=== PATIENT | female | born 1960 | race Caucasian/White ===

== ENCOUNTER → 2018-01-15 | Outpatient (CLI) | payer BC ==
--- NOTE | 2018-01-15 14:24 | MAMMOGRAPHY REPORT ---
BILATERAL DIGITAL DIAGNOSTIC MAMMOGRAM TOMOSYNTHESIS WITH CAD AND TARGETED RIGHT ULTRASOUND: 8 CLINICAL HISTORY: 57-year-old woman presents with a palpable lump in the 12:00 right breast that she has noticed for approximately 1 month. No skin erythema, thickening or nipple discharge. Family his tory of breast cancer = mother, postmenopausal. TECHNIQUE: Bilateral breast tomosynthesis in addition to standard 2D mammography was performed. Curre nt study was also evaluated with a Computer Aided Detection (CAD) system. COMPARISON: No prior exams were available for comparison; this is the patient's baseline mammogram. BREAST COMPOSITION: The tissue of both breasts is heterogeneously dense, which may obscure small mas ses. FINDINGS: A triangular skin palpable marker overlies the 12:00 middle one third of the right breast, denoting the palpable lump pointed out by the patient. In the area of palpable concern, there is a s piculated mass measuring 14 x 12 x 13 mm, with the spicules extending over a larger area measuring ap proximately 3 cm in diameter. This is suspicious and further evaluation with ultrasound was performe d. No other suspicious masses, asymmetries or areas of architectural distortion are identified bilateral ly. There are diffusely scattered punctate microcalcifications in each breast that have a benign akira mographic appearance. Targeted ultrasound was performed in the area of palpable lump in the 12:00 ri ght breast and also in the right axilla. In the area of palpable concern in the 12:00 axis, 2 cm from the nipple, there is a solid vascular ma ss with indistinct margins measuring 10.3 x 8.1 x 11.2 mm. This is suspicious for malignancy and def initive characterization with an ultrasound-guided core biopsy is recommended. Additional scanning p erformed in the right axilla demonstrates several lymph nodes, with cortical thickness within the ran ge of normal, measuring approximately 2 mm. No definite sonographic evidence of suspicious right axi llary lymphadenopathy. IMPRESSION: ACR BI-RADS CATEGORY 5: HIGHLY SUGGESTIVE OF MALIGNANCY, TARGETED ULTRASOUND ACR BI-RADS CATEGORY 5: HIGHLY SUGGESTIVE OF MALIGNANCY 1. Ultrasound-guided core biopsy is recommended for a suspicious spiculated 12 mm mass in the 12:00 right breast, which is also palpable by the patient. 2. No definite suspicious right axillary lymphadenopathy identified on targeted right axillary ultra sound. 3. No mammographic evidence of malignancy in the left breast. These results and recommendations were discussed with the patient at the time of the exam. She tenta tively scheduled the right breast biopsy prior to leaving our department. Approximately 10% of breast cancers are not detected with mammography. A negative mammographic report should not delay biopsy if a clinically suggestive mass is present. Tish Eugene M.D. ay/:01/15/2018 11:04:31 Rn Lactation Consultant: Dhara TEJEDA(Latasha)(Jemal), [facility] letter sent: Abnormal 4/5 BI-RADS Code: ACR BI-RADS Category 5: Highly Suggestive Of Malignancy Ultrasound BI-RADS: ACR BI-RAD S Category 5: Highly Suggestive Of Malignancy
== END | disposition home or self-care (01) ==
LOC: C.MAMM 08:57
PROVIDERS: ATTEND Obstetrics & Gynecology
DX: N63.10 Unspecified lump in the right breast, unspecified quadrant (principal); Z80.3 Family history of malignant neoplasm of breast

== ENCOUNTER → 2018-01-18 | Outpatient (CLI) | payer BC ==
--- NOTE | 2018-01-18 13:09 | Discharge Instructions ---
Discharge Instructions Procedure Procedure Date: Jan 18, 2018. Reason for visit: Right Mass. Discharge Discharge Date: Jan 18, 2018. Discharge Diagnosis: status post breast biopsy Instructions Activity Recommendations: Additional Limitations (see below) Return to School/Work: no limitations Recommended Home Diet: No Limitations Provider Instructions: ACTIVITY RECOMMENDATIONS: * No lifting, pushing, pulling or exercising the affected side for three days. RETURN TO SCHOOL/WORK: * You may return to work/school after the procedure, but do not perform any strenuous activities for 24 to 48 hours. MEDICATIONS: * Tylenol (two 325 mg) every four to six hours if needed for mild pain (if not allergic to Tylenol). DIET: * Resume previous diet. SPECIAL CARE INSTRUCTIONS: * Keep biopsy site dry for 24 hours. May shower after 24 hours, but do not soak (bathe) incision. * May remove Tegaderm (plastic patch) tomorrow AFTER showering. * Leave the steri-strips on for one week. Allow the steri-strips to fall off by themselves. If not off after one week, you may remove them. You may place a Bandaid crosswise over the strips, if desired. * Apply ice 10 minutes on and 10 minutes off as needed. * Wear a bra at bedtime to sleep more comfortably for 2-3 days. * Your referring physician should have the results after approximately 5 to 7 business days. * Call for unusual bleeding, fever, drainage, etc or if you have any questions call during normal business hours or after hours call Dr Lancaster, [phone]. FOLLOW UP VISIT: Follow-up with Referring Physician as scheduled. Allergies Coded Allergies: No Known Allergies (Unverified , 09/21/11) Delon Esp[place] Recommendations: Call your doctor if: * Temperature above 101 degrees * Pain not relieved by pain medicine ordered * There is increased drainage or redness from any incision * You have any unanswered questions or concerns. Your Doctors Instructions noted above were prepared by provider Kely Lancaster. Patient Signature Section: Patient Instructions Signature Page Lissa Boyer Patient (or Guardian) Signature/Date: I have read and understand the instructions given to me by my caregivers. Caregiver/RN/Doctor Signature/Date: The above-named patient and/or guardian has received patient instructions on this date. + Original Patient Signature Page (only) stays with chart. Please make copy for patient.
--- NOTE | 2018-01-21 07:50 | MAMMOGRAPHY REPORT ---
ULTRASOUND GUIDED BIOPSY RIGHT BREAST: 01/18/2018 CLINICAL HISTORY: Suspicious right 12:00 breast mass. PATIENT CONSENT: The procedure, risks and benefits were discussed with the patient and informed writt en consent was obtained. A timeout was performed immediately prior to the procedure. PROCEDURE DESCRIPTION: With ultrasound guidance, aseptic technique, and lidocaine as the local anesth etic (1% lidocaine to anesthetize the skin and 1% lidocaine with epinephrine to anesthetize the deepe r tissues), the mass of concern in the right 12:00 breast was sampled 4 times with a 14-gauge Achieve biopsy needle. Immediately thereafter, with ultrasound guidance, aseptic technique, and lidocaine a s the local anesthetic, a metallic localizer clip was placed centrally in the mass. Direct pressure was applied to the site immediately post procedure and hemostasis was achieved. Postprocedure unilat eral mammograms were performed to confirm placement of the clip in the expected location of the breas t mass. The patient tolerated the procedure without complication. She was given wound care instruc tions. The specimens were sent to pathology for analysis. COMPARISON: Comparison is made to exams dated: 01/15/2018 ultrasound and 01/15/2018 mammogram - [facility]. IMPRESSION: ULTRASOUND GUIDED BIOPSY Ultrasound-guided core needle biopsy of the suspicious right 12:00 breast mass, with clip placement. The patient will receive pathology results from her referring provider. Kely Lancaster M.D. /:01/18/2018 13:10:11 Configuration Management Advisor: Dhara DOWNS)(Jemal), [facility]
--- NOTE | 2018-01-21 07:50 | MAMMOGRAPHY REPORT ---
UNILATERAL RIGHT DIGITAL DIAGNOSTIC MAMMOGRAM TOMOSYNTHESIS: 01/18/2018 CLINICAL HISTORY: Status post right breast biopsy. TECHNIQUE: Breast tomosynthesis in addition to standard 2D mammography was performed. Postprocedura l right CC and ML tomosynthesis images were obtained. COMPARISON: Comparison is made to exams dated: 01/15/2018 ultrasound and 01/15/2018 mammogram - [facility]. BREAST COMPOSITION: The tissue of the right breast is heterogeneously dense, which may obscure small masses. FINDINGS: A new biopsy marker clip is seen at the site of the biopsied mass in the right 12:00 breast . No significant postbiopsy hematoma is seen. IMPRESSION: POST PROCEDURE IMAGING FOR MARKER PLACEMENT New biopsy marker clip status post right breast biopsy. Pathology results are pending. Approximately 10% of breast cancers are not detected with mammography. A negative mammographic report should not delay biopsy if a clinically suggestive mass is present. Kely Lancaster M.D. ah/:01/18/2018 13:27:14 Friction Saw Operator: Kely Lancaster MD, [facility] BI-RADS Code: Post Procedure Imaging For Marker Placement
== END | disposition home or self-care (01) ==
LOC: C.MAMM 12:35
PROVIDERS: ATTEND Obstetrics & Gynecology
DX: C50.911 Malignant neoplasm of unspecified site of right female breast (principal)

== ENCOUNTER 2018-02-07 07:46 | Day surgery (SDC) | payer BC ==
[2018-01-28 12:12] LABS: BASO % 0.7 %; BASO ABS # 0.05 K/uL (0-0.2); EOS % 0.7 %; EOS ABS # 0.05 K/uL (0-0.5); HEMATOCRIT 39.6 % (37-47); HEMOGLOBIN 13.9 g/dL (12.0-16.0); IG# 0.02 K/uL (0.00-0.02); LYMPH % 23.8 %; LYMPH ABS # 1.78 K/uL (1.2-3.4); MEAN CELL VOLUME 97.3 fL (80-100); MEAN CORPUSCULAR HEMOGLOBIN 34.2 pg (25-34); MEAN CORPUSCULAR HGB CONC 35.1 g/dl (32-36); MEAN PLATELET VOLUME 9.7 fL (7.4-10.4); MONO % 8.8 %; MONO ABS # 0.66 K/uL (0.11-0.59); NEUT % 65.7 %; NEUT ABS # 4.93 K/uL (1.4-6.5); PLATELET COUNT 337 K/uL (130-400); RED CELL DISTRIBUTION WIDTH CV 11.9 % (11.5-14.5); RED CELL DISTRIBUTION WIDTH SD 42.5 fL (36.4-46.3); WHITE BLOOD COUNT 7.49 K/uL (4.8-10.8)
[2018-01-28 12:29] LABS: BLOOD UREA NITROGEN 12 mg/dl (7-18); CALCIUM 8.7 mg/dl (8.5-10.1); CARBON DIOXIDE 28 mmol/L (21-32); GLUCOSE 104 mg/dl (70-99); POTASSIUM 4.1 mmol/L (3.5-5.1); SODIUM 141 mmol/L (136-145)
[2018-01-31 08:43] VITALS: BMI 18.0
[~2018-02-07] VITALS: Ht 157.5 cm; Wt 46.4 kg
[~2018-02-07 07:46] MED LIST: CEFAZOLIN 2000MG IV PUSH 15 ML IV SCH; LACTATED RINGER'S 1000ML 1,000 ML IV SCH; NUTR-218 PO
[2018-02-07 08:53] VITALS: BP 137/88; PULSE 81; TEMP 36.9; O2SAT 97; Ht 157.5 cm; Wt 46.4 kg
[2018-02-07] MEDS ORDERED: BUPIVACAINE 0.5 % 5 MG/1 ML MPF 30ML VIAL ONE (09:43)
[2018-02-07] MEDS ORDERED: LIDOCAINE HCL 2% 2 ML VIAL (20MG/ML) ONE (10:25)
[2018-02-07] MEDS ORDERED: MIDAZOLAM HCL 1 MG/ML 2ML VIAL ONE (10:25)
[2018-02-07] MEDS ORDERED: PROPOFOL IV EMULSION 10 MG/ML 20 ML VIAL ONE (10:25)
[2018-02-07] MEDS ORDERED: FENTANYL CITRATE INJ 50 MCG/1 ML 2 ML VIAL ONE ×2 (10:25→12:03)
--- NOTE | 2018-02-07 10:28 | History & Physical Bridge Note ---
H&P Re-Evaluation Bridge Note: I have examined the patient, reviewed the History & Physical and in the interval since the performance of the History & Physical I have noted the following changes of clinical significance: plan for right breast wire localized lumpectomy and right axillary sentinel lymph node biopsy. Wire placed , injection performed at [facility]. No changes noted
--- NOTE | 2018-02-07 10:32 | DIAGNOSTIC IMAGING REPORT ---
NUCLEAR MEDICINE RIGHT BREAST LYMPHOSCINTIGRAPHY INJECTION CLINICAL HISTORY: RIGHT BREAST CA COMPARISON STUDY: No previous studies for comparison. FINDINGS: A timeout was performed. 5 periareolar intradermal injections were performed utilizing a total dose of 0.51 mCi of technetium 99m Lymphoseek. The patient was sent to the operating room for intraoperative localization IMPRESSION: Right breast lymphoscintigraphy injections were performed. Electronically signed by: Shayne Chappell M.D. 02/07/2018 10:30 AM Dictated Date/Time: 02/07/2018 10:29 AM
[2018-02-07] MEDS ORDERED: EpHEDrine SULFATE INJ 50 MG/ML AMP IV PRN (11:00)
[2018-02-07] MEDS ORDERED: NALOXONE HCL 0.4 MG/1 ML VIAL/CARP IV PRN (11:00)
[2018-02-07] MEDS ORDERED: FENTANYL CITRATE INJ 50 MCG/1 ML 2 ML VIAL IV PRN (11:00)
[2018-02-07] MEDS ORDERED: HYDROmorphone INJ 0.5 MG/0.5 ML SYR IV PRN (11:00)
[2018-02-07] MEDS ORDERED: LABETALOL HCL IV 5 MG/ML 20ML IV PRN (11:00)
[2018-02-07] MEDS ORDERED: ATROPINE SULFATE 0.1 MG/ML 5ML SYR IV PRN (11:00)
[2018-02-07] MEDS ORDERED: PHENYLEPHRINE 100MCG/ML 5ML SYR IV PRN (11:00)
[2018-02-07] MEDS ORDERED: FLUMAZENIL 0.1 MG/1 ML 10 ML VIAL IV PRN (11:00)
[2018-02-07] MEDS ORDERED: MEPERIDINE HCL 25 MG/ML CARP IV PRN (11:00)
[2018-02-07] MEDS ORDERED: ONDANSETRON INJ 2 MG/ML 2 ML VIAL IV PRN ×2 (11:00→11:45)
[2018-02-07] MEDS ORDERED: ONDANSETRON INJ 2 MG/ML 2 ML VIAL ONE (11:28)
[2018-02-07] MEDS ORDERED: DEXAMETHASONE SOD INJ 4 MG/ML VIAL ONE (11:28)
[2018-02-07] MEDS ORDERED: SODIUM CHLORIDE 0.9% 1000ML 1,000 ML IV SCH (11:38)
--- NOTE | 2018-02-07 11:38 | [facility] Post Operative Brief Note ---
Immediate Operative Summary Operative Date February 07, 2018. Pre-Operative Diagnosis Right breast carcinoma Post-Operative Diagnosis Right breast carcinoma Procedure(s) Performed Right Breast Lumpectomy with Wire Localization and Right Axillary [place] Lymph Node Biopsy Surgeon Dr. Luque Carpenter Apprentice Surgeon(s) Gus LANE Estimated Blood Loss 6ml Findings Consistent with Post-Op Diagnosis single sentinel node excised, mammo confirmed excision of breast specimen Specimens a. right axilla sentinel lymph node b. right breast lumpectomy short suture superior, long suture lateral, double suture deep out of body 1124 Drains None Anesthesia Type General Complication(s) none Disposition Accompanied Pt To Recover: no Disposition: Recovery Room / PACU
[2018-02-07] MEDS ORDERED: TRAM-10 PO (11:42)
--- NOTE | 2018-02-07 11:44 | Discharge Instructions ---
Discharge Instructions Date of Service February 07, 2018. Admission Reason for Admission: Malignant Neoplasm Of Upper-Outer Quadrant Of Righ Discharge Discharge Diagnosis / Problem: malignant neoplasm of right breast Discharge Goals Goal(s): Decrease discomfort Activity Recommendations Activity Limitations: per Instructions/Follow-up section Lifting Limitations: no more than 25 pounds Exercise/Sports Limitations: gradually increase as tolerated May Resume Sexual Activity: when tolerated Shower/Bathe: tomorrow Driving or Machine Use: resume 1 day after discharge . Current Hospital Diet Patient's current hospital diet: Discharge Diet Recommended Diet: Regular Diet Procedures Procedures Performed: Right Breast Lumpectomy with Wire Localization and Right Axillary [place] Lymph Node Biopsy Pending Studies Studies pending at discharge: yes List of pending studies: pathology Medical Emergencies . Who to Call and When: Medical Emergencies: If at any time you feel your situation is an emergency, please call 911 immediately. . Non-Emergent Contact Non-Emergency issues call your: Surgeon Call Non-Emergent contact if: temperature is above 101.5, your pain is worsening, wound has increased drainage, wound has increased redness, wound has increased pain, you have any medication questions . "Provider Documentation" section prepared by Edi Luque. . [place] Drug Monitoring Program Search Results: patient reviewed within database
[2018-02-07] MEDS ORDERED: METOCLOPRAMIDE HCL INJ 5 MG/ML 2 ML VIAL IV PRN (11:45)
[2018-02-07] MEDS ORDERED: MoRPHine SULFATE 2 MG/ML CARP IV PRN (11:45)
[2018-02-07] MEDS ORDERED: TRAMADOL HCL 50 MG TAB PO PRN (11:45)
[2018-02-07] MEDS ORDERED: MoRPHine SULFATE 4 MG/ML 1 ML CARP\\VIAL IV PRN (11:45)
[2018-02-07] MEDS ORDERED: KETOROLAC TROMETHAMINE 30 MG/ML VIAL IV. PRN (11:45)
--- NOTE | 2018-02-07 11:49 | [facility] Operative Report ---
Operative Report Operative Date February 07, 2018. Pre-Operative Diagnosis Right breast carcinoma Post-Operative Diagnosis Same Procedure(s) Performed Right breast wire localized lumpectomy and right axillary sentinel lymph node biopsy Surgeon Dr. Luque Aurist Surgeon(s) Gus LANE Estimated Blood Loss 6ml Findings Single sentinel node identified using gamma probe, axilla silent after excision. Wire localized quadrantectomy performed, mammography confirmed excision of specimen wire and clip. Specimens a. right axilla sentinel lymph node b. right breast lumpectomy short suture superior, long suture lateral, double suture deep out of body 1124 Drains None Anesthesia GETA Complication(s) None Disposition Recovery Room / PACU Indications 57-year-old female with newly diagnosed right breast carcinoma, plan for right breast wire localized lumpectomy and right axillary sentinel lymph node biopsy. The risks of the procedure were discussed, all questions were answered, and the patient agreed to proceed with surgery as planned. Description of Procedure The patient had a localization wire placed in radiology prior to surgery. The films were reviewed for incisional planning. Patient had lymphoscintigraphy performed prior to the procedure and the axilla was examined with a gamma probe and confirmed uptake into the axilla. The patient was properly identified, consented, and taken to the operating room where she was placed in the supine position. General endotracheal anesthesia was induced. SCDs and a safety belt were placed. Preoperative antibiotics were administered. The patient's bilateral chest was prepped and draped in the standard sterile fashion. Surgical timeout was performed and all parties were in agreement that this was the correct patient and procedure to be performed and we continued as planned. An incision was made in the right axilla and a natural skin crease and deepened down to subcutaneous tissue with electrocautery. The gamma probe was used to localize the sentinel lymph node which read 90 in vivo, and 170 ex vivo. The axilla was explored and no additional lymph nodes were identified with gamma probe reading greater than 10% of the ex vivo count of the sentinel lymph node. A total of 1 lymph node was excised and sent for permanent specimen. The axilla was reexamined with the gamma probe and was silent. The wound was packed and attention turned to the breast lesion. A transverse incision was made on the right and deepened down through the subcutaneous tissue with electrocautery. Flaps were raised in all directions. Wire was delivered into the incision. The breast mass was circumferentially dissected down to chest wall, excised, and passed off the table as specimen. The specimen was oriented. A mammogram was performed of the specimen in radiology and confirmed excision of the wire, clip, and previously imaged abnormality. The wound was irrigated and hemostasis was confirmed. The skin was closed with interrupted 3-0 Vicryl deep dermal sutures, followed by 4-0 Monocryl running subcuticular suture. Dermabond was placed over the wound. The patient was extubated in the operating room and taken to the PACU where she recovered without apparent incident. All sponge, instrument and needle counts were correct at the conclusion of the procedure. The patient tolerated the procedure well. The physician's perinatal breastfeeding assistant was present and scrubbed for the entire to the case. He was essential in positioning the patient, prepping and draping, retraction and exposure, excision of the lymph node in the specimen, closure the incisions , placement of the dressings. I attest to the content of the Intraoperative Record and any orders documented therein. Any exceptions are noted below.
[2018-02-07 12:45] VITALS: BP 131/76; PULSE 82; TEMP 36.9; O2SAT 92
--- NOTE | 2018-02-07 12:47 | Anesthesiology Progress Note ---
Anesthesia Post Op Note Date & Time February 07, 2018 at 12:47 Vital Signs Pain Intensity: 4 Vital Signs Past 12 Hours Date Time Temp Pulse Resp B/P (MAP) Pulse Ox O2 Delivery O2 Flow Rate FiO2 02/07/18 12:35 36.3 72 18 116/77 97 Room Air 02/07/18 12:25 79 16 126/84 93 Room Air 02/07/18 12:15 77 16 121/80 93 Room Air 02/07/18 12:05 75 16 130/84 100 Oxymask 10 02/07/18 11:55 79 16 126/87 100 Oxymask 10 02/07/18 11:48 36.0 87 16 124/85 100 Oxymask 10 02/07/18 08:53 36.9 81 16 137/88 (104) 97 Room Air Notes Mental Status: alert / awake / arousable, participated in evaluation Pt Amnestic to Procedure: Yes Nausea / Vomiting: adequately controlled Pain: adequately controlled Airway Patency, RR, SpO2: stable & adequate BP & HR: stable & adequate Hydration State: stable & adequate Anesthetic Complications: no major complications apparent
[2018-02-07] MEDS ORDERED: TRAMADOL HCL 50 MG TAB ONE (12:58)
[2018-02-07 13:18] VITALS: BP 121/62; PULSE 100; TEMP 37; O2SAT 91
[2018-02-07 13:45] VITALS: BP 127/69; PULSE 104; TEMP 36.7; O2SAT 91
--- NOTE | 2018-02-07 15:34 | MAMMOGRAPHY REPORT ---
NEEDLE LOCALIZATION RIGHT BREAST: 02/07/2018 CLINICAL HISTORY: Biopsy-proven right breast cancer. PROCEDURE DESCRIPTION: With ultrasound guidance, aseptic technique, and 1% lidocaine as the local ane sthetic, the area of concern in the right 12:00 breast was localized with a 5 cm Melendez II needle. The path of approach was medial. Post procedural unilateral mammograms were obtained, which shows th e mass and associated biopsy clip to be along the distal portion of the wire just proximal to the bar b. The needle was removed. The patient tolerated the procedure without complication. COMPARISON: Comparison is made to exams dated: 01/18/2018 ultrasound biopsy, 01/18/2018 mammogram, 12/24 ultrasound, and 01/15/2018 mammogram - [facility]. IMPRESSION: NEEDLE LOCALIZATION Ultrasound-guided needle localization of the mass and associated biopsy clip in the right 12:00 mathew Lancaster M.D. ah/:02/07/2018 08:29:57 Glove Operator: Erendira Walsh, [facility]
--- NOTE | 2018-02-07 15:34 | MAMMOGRAPHY REPORT ---
UNILATERAL RIGHT DIGITAL DIAGNOSTIC MAMMOGRAM TOMOSYNTHESIS: 02/07/2018 CLINICAL HISTORY: Status post ultrasound-guided needle localization of the right 12:00 breast mass. TECHNIQUE: Breast tomosynthesis in addition to standard 2D mammography was performed. Postprocedura l right CC and MLO 2D and tomosynthesis images were obtained. COMPARISON: Comparison is made to exams dated: 02/07/2018 localization, 01/18/2018 ultrasound biopsy, 01/18/2018 mammogram, 01/15/2018 ultrasound, and 01/15/2018 mammogram - [facility]. BREAST COMPOSITION: The tissue of the right breast is heterogeneously dense, which may obscure small masses. FINDINGS: The localized mass and associated biopsy marker clip in the right 12:00 breast are located along the distal portion of the wire just proximal to the ila. IMPRESSION: Status post needle localization of the mass and biopsy marker clip in the right 12:00 breast. Approximately 10% of breast cancers are not detected with mammography. A negative mammographic report should not delay biopsy if a clinically suggestive mass is present. Kely Lancaster M.D. ah/:02/07/2018 08:31:37 Lineman Service Or Work Dispatcher: Erendira Walsh [facility] BI-RADS Code: n/a
--- NOTE | 2018-02-07 15:34 | MAMMOGRAPHY REPORT ---
SPECIMEN RIGHT BREAST: 02/07/2018 CLINICAL HISTORY: Status post right breast surgical excision. COMPARISON: Comparison is made to exams dated: 02/07/2018 localization, 01/18/2018 ultrasound biopsy, 01/18/2018 mammogram, 01/15/2018 ultrasound, and 01/15/2018 mammogram - [facility] [address]. Findings: A radiograph was performed of the right breast surgical specimen. The localized mass and b iopsy marker clip are present centrally within the specimen. The intact needle localization wire is also present. Results were relayed to the surgeon over the telephone. IMPRESSION: SPECIMEN The imaged specimen contains the localized mass and biopsy marker clip. Kely Lancaster M.D. /:02/07/2018 11:49:44 [employer] Sales Representative: Erendira Walsh, [facility] [address]
== END 2018-02-07 13:56 | disposition home or self-care (01) ==
LOC: C.ACU 07:46
PROVIDERS: ATTEND Surgery
DX: C50.411 Malignant neoplasm of upper-outer quadrant of right female breast (principal); F17.200 Nicotine dependence, unspecified, uncomplicated; Z17.0 Estrogen receptor positive status [ER+]; Z80.3 Family history of malignant neoplasm of breast

== ENCOUNTER → 2018-03-12 | Outpatient (CLI) | payer BC ==
[~2018-03-12] MED LIST changes: -CEFAZOLIN 2000MG IV PUSH 15 ML IV SCH; -LACTATED RINGER'S 1000ML 1,000 ML IV SCH; +TRAM-10 PO
== END | disposition home or self-care (01) ==
LOC: C.LABSPEC 09:52
PROVIDERS: ATTEND Pathology Anatomic Pathology & Clinical Pathology
DX: Z01.89 Encounter for other specified special examinations (principal)

== ENCOUNTER → 2018-03-13 | Outpatient (CLI) | payer BC ==
--- NOTE | 2018-04-12 08:53 | CODING QUERY NO DIAGNOSIS ---
TREATMENT RENDERED WITHOUT A DIAGNOSIS To promote full compliance with coding requirements relating to patient care, physician participation is requested in all cases of health safety instructor uncertainty. Please assist us with providing a diagnosis/symptom for the test(s) below: A diagnosis/symptom was not documented on your Order. A valid diagnosis/symptom is required to bill all insurances. Please remember that we are unable to code a diagnosis of rule out, probable, possible, questionable, or suspected. Tests that require a diagnosis: 03/13/18 * HER2 FISH CA-NEOGENOMIC DIAGNOSIS: Provider Signature: Date: Thank you Karmen Majano [employer] Information Management Once completed, please kindly fax back to [phone] For questions please call [phone]
== END | disposition home or self-care (01) ==
LOC: C.LABSPEC 13:45
PROVIDERS: ATTEND Pathology Anatomic Pathology & Clinical Pathology
DX: C50.919 Malignant neoplasm of unspecified site of unspecified female breast (principal)

== ENCOUNTER → 2018-04-29 | Outpatient (CLI) | payer BC | END | disposition home or self-care (01) | LOC: C.MAMM 07:46 | PROVIDERS: ATTEND Specialist | DX: Z78.0 Asymptomatic menopausal state (principal) ==